=== PATIENT | female | born 1960 | race Two or more races ===

== ENCOUNTER 2016-07-18 16:35 | Emergency (ER) | payer BC, MEDICAID ==
[~2016-07-18] VITALS: Ht 172.7 cm; Wt 72.6 kg
[2016-07-18 17:43] VITALS: BP 106/78; PULSE 77; RESP 18; TEMP 98; O2SAT 96
--- NOTE | 2016-07-18 17:51 | NUR ---
Patient triaged and placed in waiting room. VSS and patient appears in no acute distress at this time. Accompanied by , awaiting available bed, and MD notified of need for MSE.
--- NOTE | 2016-07-18 18:15 | NUR ---
Pt placed in ER bed 08 and to gown. Pt placed on property assessment monitor. Pt from home with c/o generalized weakness with multiple syncopal episodes. Pt states that she was moving furniture in garage and fell onto some CDs. Pt states that she couldn't get up and felt like she passed out several times. Pt currently AAOx4, even and non-labored respirations, BBS clear. Pt able to track with eyes, face and smile symmetrical. Pt has weak bilat hand grasps with weakness noted to BLE.
--- NOTE | 2016-07-18 18:30 | NUR ---
Dr. Leach at bedside to assess pt.
--- NOTE | 2016-07-18 18:35 | NUR ---
# 20 gauge angiocath placed to LFA. Use of asceptic technique. Opsite placed over site. Blood return noted. Blood for lab drawn from site. Flushed with 10 cc of normal saline. No evidence of infiltration noted. Patient tolerated well.
[2016-07-18 19:01] LABS: BASOPHILS % (AUTO) 0.6 % (0.0-2.0); EOSINOPHILS % (AUTO) 0.7 % (0.0-4.0); HEMATOCRIT 39.1 % (36-48); HEMOGLOBIN 13.3 g/dL (12.0-16.0); LYMPHOCYTES # (AUTO) 1.6 K/uL (1.0-5.5); LYMPHOCYTES % (AUTO) 22.6 % (20.5-51.5); MEAN CORPUSCULAR HEMOGLOBIN 30 pg (27-31); MEAN CORPUSCULAR HGB CONC 34 % (32-36); MEAN CORPUSCULAR VOLUME 89 fL (79.0-98.0); MONOCYTES # (AUTO) 0.5 K/uL (0.0-1.0); MONOCYTES % (AUTO) 6.6 % (1.7-9.3); NEUTROPHILS # (AUTO) 4.8 K/uL (1.8-7.7); NEUTROPHILS % (AUTO) 69.5 % (40.0-70.0); PLATELET COUNT (AUTO) 187 K/uL (130-430); RED CELL DISTRIBUTION WIDTH 12.6 % (9.0-15.0); WHITE BLOOD COUNT (AUTO) 6.9 K/uL (4.8-10.8)
--- NOTE | 2016-07-18 19:17 | NUR ---
pt Assisted to bedside commode per request. C/o headache 09/09, tolerable. No distress noted
[2016-07-18 19:29] LABS: PROTHROMBIN TIME 10.8 SECS (9.5-12.5)
--- NOTE | 2016-07-18 19:45 | NUR ---
Pt and was explained the purpose of CT scan. Pt stated she does not want to have the test and wants to go home. URBAN Velez informed pt the risk and benefit of signing AMA, including the responsibility of pt and family regarding pt's decision. Pt stated that she wants to have the scan and will continue with treatment. acknowledged.
[2016-07-18 19:58] LABS: BARBITURATE, URINE NEGATIVE (NEG <=200); BENZODIAZEPINE, URINE NEGATIVE (NEG <=150); CANNABINOID, URINE NEGATIVE (NEG <=50); COCAINE, URINE NEGATIVE (NEG <=150); METHAMPHETAMINES SCREEN,URINE NEGATIVE (NEG <=500); PHENCYCLIDINE SCREEN,URINE NEGATIVE (NEG <=25); URINE AMPHETAMINE NEGATIVE (NEG <=500); URINE METHADONE NEGATIVE (NEG <=200)
[2016-07-18 19:59] LABS: OPIATE, URINE NEGATIVE (NEG <=100); UR TRICYCLIC ANTIDEPRESSANTS NEGATIVE (NEG <=300); URINE OXYCODONE SCREEN NEGATIVE (NEG <=100); URINE PROPOXYPHENE SCREEN NEGATIVE (NEG <=300)
[2016-07-18 20:02] LABS: CALCIUM 9.1 mg/dL (8.4-11.0); CREATININE 0.58 mg/dL (0.55-1.30); POTASSIUM 3.6 mmol/L (3.5-5.1)
[2016-07-18 20:07] LABS: ALBUMIN 3.9 g/dL (3.4-4.8); TOTAL BILIRUBIN 0.6 mg/dL (0.0-1.0); TOTAL PROTEIN, SERUM 7.8 g/dL (6.4-8.3)
--- NOTE | 2016-07-18 20:40 | NUR ---
Pt c/o 12/09 headache, MD coles requested for medication, awaiting order
[2016-07-18] MEDS ORDERED: ACETAMINOPHEN 500 MG TABLET PO ONE (21:00)
[2016-07-18] MEDS ORDERED: PROCHLORPERAZINE EDISYLATE 10 MG/2 ML VIAL IVP ONE (21:00)
[2016-07-18] MEDS ORDERED: DIPHENHYDRAMINE INJ 50 MG/ML VIAL IVP ONE (21:00)
--- NOTE | 2016-07-18 21:08 | NUR ---
pt stated headache is gone and she feels comfortable. appeared resting comfortably
--- NOTE | 2016-07-18 22:15 | NUR ---
at bedside discussing with pt
[2016-07-18 22:30] VITALS: BP 118/67; PULSE 65; RESP 18; TEMP 98; O2SAT 97
--- NOTE | 2016-07-18 22:30 | NUR ---
Patient given written and verbal discharge instructions and verbalizes understanding. ER MD Fraga discussed with patient the results and treatment provided. Given copies of tests performed in ER. Patient in stable condition. ID arm band removed. IV catheter removed intact and dressing applied, no active bleeding. Rx of ativan given. Patient educated on pain management and to follow up with PMD. Pain Scale 0/10 Opportunity for questions provided and answered.
== END 2016-07-18 22:30 | disposition home or self-care (01) ==
LOC: SED 16:35
DX: F41.9 Anxiety disorder, unspecified (principal); F43.9 Reaction to severe stress, unspecified; R53.1 Weakness; R42 Dizziness and giddiness
CPT/HCPCS: 36415; 70450; 71010; 73510; 80053; 80307; 82550; 83880; 84484; 85025; 85610; 85730; 93005; 96374; 96375; 99285; J0780; J1200